=== PATIENT | female | born 1995 | race Caucasian/White ===

== ENCOUNTER 2023-09-28 01:12 | Emergency (ER) | payer SELFPAY ==
[~2023-09-28] VITALS: Ht 149.9 cm; Wt 60.0 kg
[2023-09-28 01:30] VITALS: BP 143/97; PULSE 96; RESP 18; TEMP 98.5; O2SAT 98
== END 2023-09-28 03:55 | disposition left against medical advice (07) ==
LOC: ER 01:14
DX: K04.7 Periapical abscess without sinus (principal); Z53.21 Procedure and treatment not carried out due to patient leaving prior to being seen by health care provider
CPT/HCPCS: 99281